=== PATIENT | male | born 1935 | race Caucasian/White ===

== ENCOUNTER 2018-03-22 10:15 | Inpatient (IN) | payer MEDICARE, BC ==
[~2018-03-22] VITALS: Ht 175.3 cm; Wt 98.0 kg
[2018-05-29] VITALS (12 sets, daily range): BP systolic 115–140; BP diastolic 45–61; PULSE 66–79; TEMP 97–98.8
[2018-05-29] MEDS ORDERED: MULTIPLE VITAMI1 CAP PO (03:19)
[2018-05-29] MEDS ORDERED: VITAMIN C500 MG PO (03:19)
[2018-05-29] MEDS ORDERED: LUTEIN20 M1 PO (03:20)
[2018-05-29] MEDS ORDERED: VITAMIN D31000 I1 PO (03:20)
[2018-05-29] MEDS ORDERED: PRINZIDE 12.5 M1 TA1 PO (03:21)
[2018-05-29] MEDS ORDERED: ZOCOR 40MG40 MG PO (03:22)
[2018-05-29] MEDS ORDERED: CANA300T PO (03:22)
[2018-05-29] MEDS ORDERED: TRADJENTA5 MG PO (03:23)
[2018-05-29] MEDS ORDERED: GLUCOPHAGE500 MG/TAB PO (03:23)
[2018-05-29] MEDS ORDERED: FLOMAX 0.40.4 MG/CAP PO (03:23)
[2018-05-29] MEDS ORDERED: PROSCAR 5MG5 MG PO (05:30)
--- NOTE | 2018-05-29 06:07 | NUR ---
Patient admitted to the floor at 0520. Admission B and assessment completed. Med-rec and allergies reviewed and confirmed. Blood sugar checked on admit was 160. Patient prepared for surgery with no incidents; 18 g IV started to left forearm, pre-op medications given and right shoulder scrubbed and marked for surgery. Patient is awaiting to go down for surgery at this time. Family is at bedside.
--- NOTE | 2018-05-29 06:34 | NUR ---
Report called to Genaro Villarreal CRNA and patient sent down to surgery with David at this time.
--- NOTE | 2018-05-29 10:17 | NUR ---
MADAI and SW student met with the patient's , Bhavani, to discuss discharge plan. The patient was in recovery. The patient lives in [place] with his . She reports he is independent with ADLs and has a cane. The patient's PCP is Dr. Jeffery Mccarthy and he receives his medications at [facility]. The patient's reports no difficulties obtaining his meds. The patient does not have advanced directives and the patient's was not interested in obtaining a form for DPOA-HC. The patient plans to return home with his upon discharge. No indentified needs at this time, but SW to continue to follow.
--- NOTE | 2018-05-29 12:06 | NUR ---
First visit from the tie in machine operator. No needs right now.
--- NOTE | 2018-05-29 12:25 | NUR ---
PT TO ROOM 326 @ 1050 WITH REPORT FROM SAHIL INSPECTOR WIRE ROPE. PT IS A/O X3, RIGHT ARM IN ADDUCTOR SLING. AQUACEL OVER INCISION CDI. ICE BAG TO SHOULDER. LUNGS CLEAR. RADIAL PULSES PALPABLE BILATERALLY. PT REPORT NUMBNESS TO RIGHT HAND. IV TO PUMP PER ORDERS. ASSISTED WITH ORDERING FOOD AND ORIENTED TO ROOM.
--- NOTE | 2018-05-29 18:50 | NUR ---
REPORT TO COURTNEY HERNANDEZ.
--- NOTE | 2018-05-29 20:00 | NUR ---
ASSUMED CARE FOR ACTUARY MANAGER. ASSESSMENT COMPLETE. VS STABLE. RESTING IN BED WITH ABDUCTION SLING ON. DRESSING IS DRY AND INTACT-SMALL 3CM SPOT OF OLD DRAINAGE NOTED. NS @125ML/HOUR INFUSING WITHOUT DIFFICULTY. O2@3L PER NC. FRESH ICE PACK APPLIED TO RIGHT SHOULDER. PLAN OF CARE DISCUSSED FOR SITTING ON EDGE OF BED AND WALKING LATER THIS SHIFT. VERBALIZES UNDERSTANDING. DENIES NEED FOR PAIN MEDICATION AT THIS TIME. RATING PAIN 2/10. ENCOURAGED TO CALL FOR INCREASED PAIN. CALL LIGHT WITHIN REACH. BED IN LOW POSITION AND WHEELS LOCKED. WILL CONTINUE TO MONITOR.
--- NOTE | 2018-05-29 21:10 | NUR ---
AMBULATED AROUND MEDICAL/SURGICAL FLOOR WITH STAND BY ASSIST, APPROX 150 FEET, WITHOUT DIFFICULTY.
[2018-05-30 04:29] VITALS: BP 121/48; PULSE 66; TEMP 97.7
--- NOTE | 2018-05-30 05:33 | NUR ---
HAS RESTED MOST OF THIS SHIFT. C/O PAIN TO RIGHT SHOULDER-RATING 10. NORCO ONE TAB GIVEN PER DR ORDER. DRESSING C/D/I. ABDUCTOR SLING ON APPROPRIATELY. TOLERATING PO. FRESH ICE PACK APPLIED. DENIES ANY CQUESTIONS OR CONCERNS AT THIS TIME. CALL LIGHT WITHIN REACH. BED IN LOW POSITION/WHEELS LOCKED WILL MONITOR.
--- NOTE | 2018-05-30 06:00 | NUR ---
0600 PAIN MED ASSESSMENT WAS 07/12. DOES NOT LIKE TO TAKE NARCOTICS SO WANTED TO TRY ONE TAB OF NORCO. REQUESTING SECOND TAB AT THIS TIME. WILL MONITOR EFFECTIVENESS.
--- NOTE | 2018-05-30 06:24 | NUR ---
REQUEST SENT TO PHARMACY TO RETIME 0700 PROTONIX DOSE-PATIENT STATES SHE WONT TAKE IT UNTIL 09 AND REFUSED THIS AM.
--- NOTE | 2018-05-30 07:00 | NUR ---
Patient found resting in bed. Complains of pain 05/12. Ice applied to right shoulder. Encouraged use of IS. Call light within reach.
--- NOTE | 2018-05-30 07:07 | NUR ---
report from Cele HERNANDEZ.
[2018-05-30 08:00] VITALS: BP 130/70; PULSE 67; TEMP 97
[2018-05-30] MEDS ORDERED: ASPI325T6 PO (09:23)
[2018-05-30] MEDS ORDERED: ROXICODONE 55 MG/TAB PO (09:24)
[2018-05-30] MEDS ORDERED: NORCO 325 MG-7.1 TAB PO (09:24)
[2018-05-30] MEDS ORDERED: PEPCID 20MG TAB20 MG PO (09:25)
[2018-05-30 12:00] VITALS: BP 113/67; PULSE 67; TEMP 97.6
--- NOTE | 2018-05-30 13:03 | NUR ---
Pt up to br with SBA x1, pt reporting pain well controlled 3-4/10 this shift with po pain meds given as ordered. Patient ambulating with steady gait. Spouse at bedside with other family members.
--- NOTE | 2018-05-30 13:25 | NUR ---
Patient resting in bed at this time. Assited patient to bathroom and back to bed. Ice applied to right shoulder. Call light within reach. Reported off to DAVID Lam.
--- NOTE | 2018-05-30 16:41 | NUR ---
ASSISTED PT UP TO BR. PT VOIDED AND RETURNED TO BED INDEPNDENTLY WITH OUT CALLING.
[2018-05-30 16:52] VITALS: BP 129/54; PULSE 72; TEMP 97.8
--- NOTE | 2018-05-30 18:56 | NUR ---
REPORT TO JEAN-CLAUDE HERNANDEZ. PT TO TAKE 1700 METFORMIN LATER THIS NOC.
--- NOTE | 2018-05-30 20:50 | NUR ---
Pt. sitting up in bed at this time. Pt. is A&OX3, assessment complete. INT to lt. hand patent. Dressing to rt. shoulder CDI. abduction sling on correctly at this time. Pt. reports pain at a 3 on pain scale. Gave Tylenol per orders. Pt. denies further needs, call light within reach.
[2018-05-30 21:10] VITALS: BP 127/50; PULSE 80; TEMP 98.7
[2018-05-30 23:24] VITALS: BP 146/57; PULSE 77; TEMP 98.5
[2018-05-31 04:00] VITALS: BP 120/51; PULSE 79; TEMP 98.3
--- NOTE | 2018-05-31 07:00 | NUR ---
Patient found resting in bed. Complains of pain at 3/10. Ice applied to shoulder. Will continue to monitor.
[2018-05-31 08:00] VITALS: BP 128/52; PULSE 74; TEMP 97.6
[2018-05-31 12:00] VITALS: BP 128/54; PULSE 72; TEMP 97.8
[2018-05-31 16:05] VITALS: BP 142/55; PULSE 75; TEMP 98.3
--- NOTE | 2018-05-31 16:40 | NUR ---
PATIENT'S RIDE HERE. PATIENT WAS GIVEN DISCHARGE INSTRUCTIONS AN HOUR AGO. ALREADY FILLED RX. FOLLOW UP APTS GIVEN. STUDENT ANNAMARIA MENA'Janna IV. NEW AQUACEL DRESSING WAS ALSO APPLIED TO RIGHT SHOULDER. PATIENT DISCHARGED
== END 2018-05-31 16:40 | disposition home or self-care (01) | DRG 483 ==
LOC: JCC 05-15 07:30 → SURG 05-29 05:06 → JCC 05-29 07:30 → SURG 05-31 16:40
PROVIDERS: ADMIT Orthopaedic Surgery
PROC: 0RRJ00Z Replacement of Right Shoulder Joint with Reverse Ball and Socket Synthetic Substitute, Open Approach (ICD-10-PCS; principal; 2018-05-29 07:30)
DX: M19.011 Primary osteoarthritis, right shoulder (principal); I10 Essential (primary) hypertension; E11.9 Type 2 diabetes mellitus without complications; Z85.828 Personal history of other malignant neoplasm of skin; Z87.891 Personal history of nicotine dependence
CPT/HCPCS: A4314; A4619; A9284; C1713; C1776; J0330; J0690; J1100; J2250; J2405; J2704; J2795; J3010; J3370; J7030; J7120

== ENCOUNTER → 2018-05-08 | Outpatient (CLI) | payer MEDICARE, BC ==
[2018-05-08 17:23] LABS: HIV 1/2 Antibodies Non-Reactive; HIV-1p24 Antigen Non-Reactive
== END ==
LOC: COL.LAB 15:38
PROVIDERS: Orthopaedic Surgery
DX: Z01.812 Encounter for preprocedural laboratory examination (principal); M19.011 Primary osteoarthritis, right shoulder